=== PATIENT | female | born 1950 | race Caucasian/White ===

== ENCOUNTER → 2020-12-26 09:58 | Outpatient (CLI) | payer OTHER, SELFPAY ==
--- NOTE | ~2020-12-26 | DEXA_ITS ---
Bone Density Report Name: Reva Mayer Age: 70 Sex: Female Ethnicity: White Date of : 1950 Indication: osteopenia; postmenopausal Referring Provider: PHILOMENA WHITMAN Study: Bone densitometry was performed. Exam Date: December 26, 2020 Accession number: [id number] Bone Density: Region BMD T-score Z-score Classification AP Spine (L1-L4) 0.905 -1.3 0.8 Osteopenia Femoral Neck (Left) 0.887 0.3 2.1 Normal Total Hip (Left) 1.010 0.6 2.0 Normal Femoral Neck (Right) 0.856 0.1 1.8 Normal Total Hip (Right) 0.968 0.2 1.7 Normal Total Hip Mean 0.989 0.4 1.9 Normal World Health Organization criteria for BMD impression classify patients as: Normal (T-score at or above -1.0), Osteopenia (T-score between -1.0 and -2.5), or Osteoporosis (T-score at or below -2.5). 10-year Fracture Risk(1): Major Osteoporotic Fracture 6.8% Hip Fracture 0.3% Reported Risk Factors: [place] (), Neck BMD=0.856, BMI=31.2 (1) FRAX(R) Version 3.08. Fracture probability calculated for an untreated patient. Fracture probability may be lower if the patient has received treatment. Previous Exams: Region Exam Age BMD T-score BMD Change BMD Change Date g/cm2 vs Baseline vs Previous AP Spine(L1-L4) 12/26/2020 70 0.905 -1.3 -0.003 0.002 07/21/2018 67 0.903 -1.3 -0.004 0.007 04/13/2015 64 0.896 -1.4 -0.012 -0.061* 03/10/2013 62 0.957 -0.8 0.049* 0.051* 02/18/2011 60 0.906 -1.3 -0.002 -0.012 07/28/2006 55 0.919 -1.2 0.011 0.011 05/22/2005 54 0.908 -1.3 Total Hip(Left) 12/26/2020 70 1.010 0.6 -0.074 0.028 07/21/2018 67 0.982 0.3 -0.102* -0.059* 04/13/2015 64 1.041 0.8 -0.043* 0.053* 03/10/2013 62 0.989 0.4 -0.096* 0.019 02/18/2011 60 0.970 0.2 -0.115* -0.052* 07/28/2006 55 1.022 0.7 -0.063* -0.063* 05/22/2005 54 1.084 1.2 Total Hip(Right) 12/26/2020 70 0.968 0.2 -0.108 -0.072 07/21/2018 67 1.040 0.8 -0.036* 0.000 04/13/2015 64 1.040 0.8 -0.037* 0.087* 03/10/2013 62 0.952 0.1 -0.124* -0.032* 02/18/2011 60 0.985 0.3 -0.092* -0.062* 07/28/2006 55 1.047 0.9 -0.029* -0.029* 05/22/2005 54 1.076 1.1 *Denotes significance at 95% confidence level, LSC for AP Sp
--- NOTE | ~2020-12-26 | MM_ITS ---
EXAMINATION: MM screening pedro luis BI w claudia HISTORY: Screening TECHNIQUE: Craniocaudal and mediolateral oblique 3-D tomosynthesis images were obtained and synthetic 2-D images were generated. CAD analysis was submitted and interpreted. COMPARISON: Comparison to multiple prior studies sequentially, with oldest reviewed study dated 04/13. BREAST PARENCHYMAL COMPOSITION: There are scattered areas of fibroglandular density. FINDINGS: There is no evidence of suspicious mass, calcification, or architectural distortion to sugg est malignancy in either breast. There has been no suspicious interval change. IMPRESSION: 1. No mammographic evidence of malignancy. 2. Recommend routine screening mammography in one year. BI-RADS Category 1: Negative Reviewed, dictated and finalized at location A. OM[facility] SUCCESS SPECIALIST
== END ==
PROVIDERS: PCP Family Medicine; Visit Provider Family Medicine
DX: Z12.31 Encounter for screening mammogram for malignant neoplasm of breast (principal); Z78.0 Asymptomatic menopausal state
CPT/HCPCS: 77063; 77067; 77080

== ENCOUNTER 2021-07-24 00:56 | Day surgery (SDC) | payer OTHER, SELFPAY ==
[2021-07-12 14:25] VITALS: BMI 29.7
--- NOTE | 2021-07-23 13:48 | WPDANESEPPF ---
Anes - Initial Pre Proc Eval Procedure: Operation Date: 07/24/21 09:30 Proposed Procedures p Colonoscopy - Dav See MD Date/Time: 07/23/21 13:48 Surgeon: Dav See MD Pre Op Diagnosis: positive cologuard Patient Data Age: 70 Gender: F Height: 1.63 m Weight: 78.6 kg Allergies Allergy/AdvReac Type Severity Reaction Status Date / Time No Known Allergies Allergy Mild Verified 07/24/21 08:34 Home Medications Medication Instructions Recorded Confirmed Type ergocalciferol (vitamin D2) 1,250 50,000 unit PO WEEKLY #12 cap 12/25/20 07/24/21 Rx mcg (50,000 unit) capsule levothyroxine 175 mcg tablet 175 mcg PO DAILY #90 tablet 05/17/21 07/24/21 Rx Patient hx anesthesia problems: none Family hx anesthesia problems: none PMFSH Past Medical History Medical History (Updated 06/26/21 @ 17:44 by Opal Patiño MD) Acquired hypothyroidism Vitamin D deficiency, unspecified Surgical History Surgical History (Updated 07/23/21 @ 13:49 by Jeffrey Heard DO) History of tubal ligation Family History Family History Mother Carcinoma of colon Father Family history of pancreatic cancer Other Family history of malignant neoplasm Family history of malignant neoplasm of brain Social History Social History (Updated 05/23/21 @ 21:39 by Opal aPtiño MD) Social History: Smoking packs per day: 1 Smoking cigarettes per day: 20.0 Years smoked: 10 Smoking pack-years: 10.00 Smoking status: Former smoker Tobacco type: cigarettes Second hand tobacco smoke exposure: No Smoking end date: 12/01/95 Alcohol intake: current Drinks per week: 6 Substance use: never Substance use type: does not use Living arrangements: with family Gender identity (if verbalized by the patient): Female Spiritual care concerns: No Agree to blood products: Yes Anes - Eval Final PreProcedure Day of Procedure 07/23/21 13:48 Patient weight: overweight Heart: regular rate and rhythm Lungs: clear to auscultation and normal air movement Airway: Mallampati scale class II Neurological: alert and oriented Last oral intake: >/= 8 hours ASA classification: II Emergent: no Anesthetic plan: proceed Anesthesia type and monitoring: general GIVS and standard monitoring Informed Consent: The patient's anesthetic plan and its attendant risks and benefits were discussed with the patient/family/POA. Questions were solicited and answers provided to the satisfaction of the patient/family/POA.
[2021-07-24 08:35] VITALS: BP 100/63; PULSE 75; RESP 16; TEMP 36.1; O2SAT 99; BMI 29.0
[2021-07-24] MEDS: LACTATED RINGERS 1,000 ML 150 ML IV CONT (08:38)
--- NOTE | 2021-07-24 10:05 | PM.HPGS ---
History of Present Illness History of Present Illness Consent: Risks, benefits, and alternatives have been discussed and questions answered. Patient agrees to proceed with procedure. Chief complaint: positive cologuard Narrative: Reva Mayer is a 70 year old female with last colonoscopy 10 years ago but had a recent positive cologuard Review of Systems Constitutional: Constitutional: Denies headache(s) and Denies weakness Eyes: Eyes: Denies blurry vision ENT: Reports Normal hearing present, Denies headache(s) and Denies neck pain Cardiovascular: Cardiovascular: Denies chest pain and Denies dyspnea Respiratory: Respiratory: Denies dyspnea Gastrointestinal: Gastrointestinal: Reports no additional gastrointestinal complaints Genitourinary: Genitourinary: Denies dysuria Musculoskeletal: Musculoskeletal: Denies neck pain Integumentary/Breasts: Skin/Breast: Denies dry skin Neurologic: Reports Normal hearing present, Denies headache(s) and Denies weakness Psychiatric: Psychiatric: Denies anxiety Endocrine: Endocrine: Denies change in body appearance Hematologic/Lymphatic: Hematologic/Lymphatic: Denies easy bleeding Allergic/Immunologic: Allergic/Immunologic: Denies urticaria PMFSH Past Medical History Medical History (Updated 06/26/21 @ 17:44 by Opal Patiño MD) Acquired hypothyroidism Vitamin D deficiency, unspecified Surgical History Surgical History (Updated 07/23/21 @ 13:49 by Jeffrey Heard DO) History of tubal ligation Family History Family History Mother Carcinoma of colon Father Family history of pancreatic cancer Other Family history of malignant neoplasm Family history of malignant neoplasm of brain Social History Social History (Updated 05/23/21 @ 21:39 by Opal Patiño MD) Social History: Smoking packs per day: 1 Smoking cigarettes per day: 20.0 Years smoked: 10 Smoking pack-years: 10.00 Smoking status: Former smoker Tobacco type: cigarettes Second hand tobacco smoke exposure: No Smoking end date: 12/01/95 Alcohol intake: current Drinks per week: 6 Substance use: never Substance use type: does not use Living arrangements: with family Gender identity (if verbalized by the patient): Female Spiritual care concerns: No Agree to blood products: Yes Meds Home Medications and Allergies Home Medications Medication Instructions Recorded Confirmed Type ergocalciferol (vitamin D2) 1,250 50,000 unit PO WEEKLY #12 cap 12/25/20 07/24/21 Rx mcg (50,000 unit) capsule levothyroxine 175 mcg tablet 175 mcg PO DAILY #90 tablet 05/17/21 07/24/21 Rx Allergies Allergy/AdvReac Type Severity Reaction Status Date / Time No Known Allergies Allergy Mild Verified 07/24/21 08:34 Vital Signs Vital Signs - 24 hr 07/24/21 08:35 Temperature 97 F L Pulse Rate 75 Respiratory Rate 16 Blood Pressure 100/63 Pulse Oximetry 99 Exam Const: General: comfortable and no acute distress HENMT: General nose exam: Normal nares present Eyes: General: appearance normal, both eyes and all related structures Neck: Neck: no JVD Resp: Auscultation: clear to auscultation bilaterally Cardio: Rate: regular rate Rhythm: regular rhythm GI: Inspection: non-distended GI Palp: Yes Soft to palpation Skin: General skin exam: normal color Neuro: General: gait normal Speech: normal speech Extrem: General: normal to inspection Psych: Mental Status: mental status grossly normal Assessment and Plan Assessment and plan (1) Positive colorectal cancer screening using Cologuard test: Code(s): R19.5 - Other fecal abnormalities Status: Acute Assessment and Plan: colonoscopy
--- NOTE | 2021-07-24 10:58 | SUR.OPER ---
ORISE GEL 10ML INJECTED INTO DISTAL ASCENDING COLON POLYP, LOT [id number], EXP 2022-12-31 NORMAL SALINE 10ML INJECTED INTO DISTAL ASCENDING COLON POLYP, LOT [id number], EXP 2024-01-29
[2021-07-24 11:43] VITALS: BP 120/58; PULSE 70; RESP 17; O2SAT 99
[2021-07-24 11:53] VITALS: BP 122/56; PULSE 60; RESP 16; O2SAT 99
[2021-07-24 12:03] VITALS: BP 129/62; PULSE 60; RESP 19; O2SAT 99
== END 2021-07-24 12:21 | disposition home or self-care (01) ==
PROVIDERS: PCP Family Medicine; Visit Provider Internal Medicine Gastroenterology
PROC: 0DJD8ZZ Inspection of Lower Intestinal Tract, Via Natural or Artificial Opening Endoscopic (ICD-10-PCS; CPT 45378; principal; 2021-07-24 09:30)
DX: R19.5 Other fecal abnormalities (principal); K64.8 Other hemorrhoids; K63.5 Polyp of colon; E03.9 Hypothyroidism, unspecified; E55.9 Vitamin D deficiency, unspecified; Z87.891 Personal history of nicotine dependence
CPT/HCPCS: 45381; 45385; 45380; 45390; 88305; J2704; J7120

== ENCOUNTER → 2022-02-28 09:47 | Outpatient (CLI) | payer OTHER, SELFPAY ==
--- NOTE | ~2022-02-28 | MM_ITS ---
EXAMINATION: MM screening [facility] [place] BI w claudia HISTORY: Screening mammogram TECHNIQUE: Craniocaudal and mediolateral oblique 3-D tomosynthesis images were obtained and synthetic 2-D images were generated. CAD analysis was submitted and interpreted. COMPARISON: 12/26/2020, 08/10/2019, 02/12/2018 BREAST PARENCHYMAL COMPOSITION: There are scattered areas of fibroglandular density. FINDINGS: There is no suspicious mass, calcification, or architectural distortion to suggest malignan cy in either breast. There has been no suspicious interval change. IMPRESSION: 1. No mammographic evidence of malignancy. 2. Recommend routine screening mammography in one year. BI-RADS Category 1: Negative Reviewed, dictated and finalized at location A.
== END ==
PROVIDERS: PCP Family Medicine; Visit Provider Nurse Practitioner Gerontology
DX: Z12.31 Encounter for screening mammogram for malignant neoplasm of breast (principal)
CPT/HCPCS: 77063; 77067

== ENCOUNTER 2022-04-02 00:03 | Day surgery (SDC) | payer OTHER, SELFPAY ==
[2022-03-18 14:25] VITALS: BMI 30.2
[2022-04-02 06:23] VITALS: BP 108/66; PULSE 76; RESP 16; TEMP 36.1; O2SAT 99
[2022-04-02] MEDS: LACTATED RINGERS 1,000 ML 150 ML IV CONT (06:31)
--- NOTE | 2022-04-02 07:24 | P.PNAN_ITS ---
Anes - Initial Pre Proc Eval Procedure: Operation Date: 04/02/22 07:30 Proposed Procedures p Screening Colonoscopy - Dav See MD Date/Time: 04/02/22 07:24 Surgeon: Dav See MD Pre Op Diagnosis: hx of colon polyps Patient Data Age: 71 Gender: F Height: 1.63 m Weight: 81.2 kg Last Vital Signs Temp 97 F L 04/02/22 06:23 Pulse 76 04/02/22 06:23 Resp 16 04/02/22 06:23 BP 108/66 04/02/22 06:23 Pulse Ox 99 04/02/22 06:23 Allergies Allergy/AdvReac Type Severity Reaction Status Date / Time No Known Allergies Allergy Mild Verified 04/02/22 06:22 Home Medications Medication Instructions Recorded Confirmed Type ergocalciferol (vitamin D2) 1,250 50,000 unit PO WEEKLY #12 cap 12/19/21 03/18/22 Rx mcg (50,000 unit) capsule levothyroxine 175 mcg tablet 175 mcg PO DAILY #90 tablet 12/19/21 04/02/22 Rx valacyclovir [Valtrex] 2,000 mg PO Q12H PRN 03/18/22 03/18/22 History Patient hx anesthesia problems: none Family hx anesthesia problems: none Results Review: All pre-operative results and documents have been reviewed as part of the pre-operative evaluation. [facility] Past Medical History Medical History Acquired hypothyroidism Vitamin D deficiency, unspecified Surgical History Surgical History History of tubal ligation Family History Family History Mother Carcinoma of colon Father Family history of pancreatic cancer Other Family history of malignant neoplasm Family history of malignant neoplasm of brain Social History Social History (Updated 12/19/21 @ 07:27 by Yuridia Woodall) Social History: Smoking packs per day: 1 Smoking cigarettes per day: 20.0 Years smoked: 10 Smoking pack-years: 10.00 Smoking status: Former smoker Tobacco type: cigarettes Second hand tobacco smoke exposure: No Smoking end date: 01/01/96 Alcohol intake: current Drinks per week: 10 Substance use: never Substance use type: does not use Living arrangements: with family Gender identity (if verbalized by the patient): Female Sexual Orientation (if Verbalized by the Patient): Straight or Heterosexual Spiritual care concerns: No Agree to blood products: Yes Anes - Eval Final PreProcedure Day of Procedure 04/02/22 07:24 Patient weight: obese Heart: regular rate and rhythm Lungs: clear to auscultation Airway: Mallampati scale class II Neurological: alert and oriented Last oral intake: >/= 8 hours ASA classification: II Emergent: no Anesthetic plan: proceed Anesthesia type and monitoring: general GIVS and standard monitoring Results Review: All pre-operative results and documents have been reviewed as part of the pre-operative evaluation. Informed Consent: The patient's anesthetic plan and its attendant risks and benefits were discussed with the patient/family/POA. Questions were solicited and answers provided to the satisfaction of the patient/family/POA.
--- NOTE | 2022-04-02 07:28 | PM.HPGS ---
History of Present Illness History of Present Illness Consent: Risks, benefits, and alternatives have been discussed and questions answered. Patient agrees to proceed with procedure. Chief complaint: hx of colon polyps Narrative: Reva Mayer is a 71 year old female with large polyps removed in piece-meal 07/2021 after had positive cologuard Review of Systems Constitutional: Constitutional: Denies headache(s) and Denies weakness Eyes: Eyes: Denies blurry vision ENT: Reports Normal hearing present, Denies headache(s) and Denies neck pain Cardiovascular: Cardiovascular: Denies chest pain and Denies dyspnea Respiratory: Respiratory: Denies dyspnea Gastrointestinal: Gastrointestinal: Reports no additional gastrointestinal complaints Genitourinary: Genitourinary: Denies dysuria Musculoskeletal: Musculoskeletal: Denies neck pain Integumentary/Breasts: Skin/Breast: Denies dry skin Neurologic: Reports Normal hearing present, Denies headache(s) and Denies weakness Psychiatric: Psychiatric: Denies anxiety Endocrine: Endocrine: Denies change in body appearance Hematologic/Lymphatic: Hematologic/Lymphatic: Denies easy bleeding Allergic/Immunologic: Allergic/Immunologic: Denies urticaria PMFSH Past Medical History Medical History (Updated 04/02/22 @ 07:28 by Dav See MD) Acquired hypothyroidism Adenomatous colon polyp Vitamin D deficiency, unspecified Surgical History Surgical History History of tubal ligation Family History Family History Mother Carcinoma of colon Father Family history of pancreatic cancer Other Family history of malignant neoplasm Family history of malignant neoplasm of brain Social History Social History (Updated 12/19/21 @ 07:27 by Yuridia Woodall) Social History: Smoking packs per day: 1 Smoking cigarettes per day: 20.0 Years smoked: 10 Smoking pack-years: 10.00 Smoking status: Former smoker Tobacco type: cigarettes Second hand tobacco smoke exposure: No Smoking end date: 12/01/95 Alcohol intake: current Drinks per week: 10 Substance use: never Substance use type: does not use Living arrangements: with family Gender identity (if verbalized by the patient): Female Sexual Orientation (if Verbalized by the Patient): Straight or Heterosexual Spiritual care concerns: No Agree to blood products: Yes Meds Home Medications and Allergies Home Medications Medication Instructions Recorded Confirmed Type ergocalciferol (vitamin D2) 1,250 50,000 unit PO WEEKLY #12 cap 12/19/21 03/18/22 Rx mcg (50,000 unit) capsule levothyroxine 175 mcg tablet 175 mcg PO DAILY #90 tablet 12/19/21 04/02/22 Rx valacyclovir [Valtrex] 2,000 mg PO Q12H PRN 03/18/22 03/18/22 History Allergies Allergy/AdvReac Type Severity Reaction Status Date / Time No Known Allergies Allergy Mild Verified 04/02/22 06:22 Vital Signs Vital Signs - 24 hr 04/02/22 06:23 Temperature 97 F L Pulse Rate 76 Respiratory Rate 16 Blood Pressure 108/66 Pulse Oximetry 99 Exam Const: General: comfortable and no acute distress HENMT: General nose exam: Normal nares present Eyes: General: appearance normal, both eyes and all related structures Neck: Neck: no JVD Resp: Auscultation: clear to auscultation bilaterally Cardio: Rate: regular rate Rhythm: regular rhythm GI: Inspection: non-distended GI Palp: Yes Soft to palpation Skin: General skin exam: normal color Neuro: General: gait normal Speech: normal speech Extrem: General: normal to inspection Psych: Mental Status: mental status grossly normal Assessment and Plan Assessment and plan (1) Adenomatous colon polyp: Code(s): D12.6 - Benign neoplasm of colon, unspecified Status: Acute Assessment and Plan: colonoscopy
[2022-04-02 07:51] VITALS: BP 96/54; PULSE 66; RESP 18; O2SAT 98
[2022-04-02 08:01] VITALS: BP 114/56; PULSE 64; RESP 15; O2SAT 95
[2022-04-02 08:11] VITALS: BP 110/63; PULSE 52; RESP 16; O2SAT 98
== END 2022-04-02 08:20 | disposition home or self-care (01) ==
PROVIDERS: PCP Family Medicine; Visit Provider Internal Medicine Gastroenterology
PROC: 0DJD8ZZ Inspection of Lower Intestinal Tract, Via Natural or Artificial Opening Endoscopic (ICD-10-PCS; CPT 45378; principal; 2022-04-02 07:30)
DX: K63.5 Polyp of colon (principal); K64.8 Other hemorrhoids; E03.9 Hypothyroidism, unspecified; E55.9 Vitamin D deficiency, unspecified; Z87.891 Personal history of nicotine dependence
CPT/HCPCS: 45385; 88305; J2704; J7120

== ENCOUNTER 2024-07-12 16:01 | Outpatient (CLI) | payer OTHER, SELFPAY ==
--- NOTE | ~2024-07-12 | XR_ITS ---
XR knee LT 3V Ordering provider: Lianna Daniel PA-C History: . M25.562 - Pain in left knee . Comparison: None. FINDINGS: BONES: No acute fracture or dislocation. JOINT SPACES: Normal. SOFT TISSUES: Normal. IMPRESSION: No acute osseous abnormality left knee. Reviewed, dictated and finalized at location A.
== END 2024-07-12 16:02 ==
PROVIDERS: PCP Physician Assistant; Visit Provider Physician Assistant
DX: M25.562 Pain in left knee (principal)
CPT/HCPCS: 73562

== ENCOUNTER 2024-07-28 11:02 | Outpatient (CLI) | payer OTHER, SELFPAY ==
--- NOTE | ~2024-07-28 | MM_ITS ---
EXAMINATION: MM screening [facility] w claudia HISTORY: Screening TECHNIQUE: Craniocaudal and mediolateral oblique 3-D tomosynthesis images were obtained and synthetic 2-D images were generated. CAD analysis was submitted and interpreted. COMPARISON: Comparison to multiple prior studies sequentially, with oldest reviewed study dated 08/2017. BREAST PARENCHYMAL COMPOSITION: Not dense: There are scattered areas of fibroglandular density. FINDINGS: There is no evidence of suspicious mass, calcification, or architectural distortion to sugg est malignancy in either breast. There has been no suspicious interval change. IMPRESSION: 1. No mammographic evidence of malignancy. 2. Recommend routine screening mammography in one year. BI-RADS Category 1: Negative Reviewed, dictated and finalized at location B.
== END 2024-07-28 11:03 ==
LOC: MICIMG 11:03
PROVIDERS: PCP Family Medicine; Visit Provider Family Medicine
DX: Z12.31 Encounter for screening mammogram for malignant neoplasm of breast (principal)
CPT/HCPCS: 77063; 77067

== ENCOUNTER 2025-01-20 09:31 | Outpatient (CLI) | payer OTHER, SELFPAY ==
--- NOTE | ~2025-01-20 | XR_ITS ---
Cervical Spine: AP, lateral, open-mouth views Clinical History: Pain Findings: The normal lordotic curve is maintained. No fracture seen. Minimal grade 1 anterolisthesis of C3 over C4. There is mild degenerative change at C5-C6. There is mild facet arthropathy.. Pre-vert ebral soft tissues are unremarkable. Impression: Mild degenerative spondylosis, as above. Reviewed, dictated and finalized at [facility]. [employer] GRADER Impression: Mild degenerative spondylosis, as above.
== END 2025-01-20 09:32 | disposition home or self-care (01) ==
LOC: MICIMG 09:32
PROVIDERS: PCP Family Medicine; Visit Provider Physician Assistant
DX: M47.892 Other spondylosis, cervical region (principal)
CPT/HCPCS: 72040

== ENCOUNTER 2025-10-17 01:16 | Day surgery (SDC) | payer OTHER, SELFPAY ==
--- OUTSIDE RECORDS SUMMARY | 2009-08-28 18:00 | XMS_ITS | Continuity of Care Document ---
Author Organization [facility] Address [address] [place] [address] Phone Care Team Providers Care Cost Accounting Clerk Name Role Phone Brenda Goode DO Unavailable Unavailable Procedures Procedure Date Specimen handling/transport Specimen handling/transport Advance Directives Directive Yes / No Effective Date File Name No Information Encounters Encounter Description Practice Location Reason(s) For Visit Diagnoses Date Provider Providers Copied on Encounter [facility], [address] [facility], [id number], tel:[phone] [facility] No Information 9 Rupa Gutierrez. [address] [facility], [facility] 100, [place], [place], [id number] , [place]. tel:[phone] Family History Family Member Type Diagnosis Age At Onset No Information Payers Payer name Insurance type Covered green party ID Authoriza sheron(s) [employer] [id number] Social History Type Description Quantity Date Captured Comments Sex Female Smoking Status No Information Chief Complaint And Reason For Visit No Information Reason For Referral Reason For Referral No Information History Of Present Illness Encounter Date Complaint History Of Prese nt Illness No Information Functional Status Date Functional Assessmen t No Information Instructions Date Instruction Additional Infor mation No Information Assessments Type Assessment Date No Information Patient Care Teams Name Effective Dates (start - stop) Status Members No Information
--- OUTSIDE RECORDS SUMMARY | 2009-08-28 18:00 | XMS_ITS | Continuity of Care Document ---
Author Organization [facility] Address [address] [facility] [address] [place] [address] Phone Care Team Providers Care Twisting Press Operator Name Role Phone Brenda Goode DO Unavailable Unavailable Procedures Procedure Date Specimen handling/transport Specimen handling/transport Advance Directives Directive Yes / No Effective Date File Name No Information Encounters Encounter Description Practice Location Reason(s) For Visit Diagnoses Date Provider Providers Copied on Encounter [facility], [address] [facility] [address], [id number], tel:[phone] [facility] No Information 9 Rupa Gutierrez. [address] [facility], [email or web address] 100, [place], [place], [id number] , [place]. tel:[phone] Family History Family Member Type Diagnosis Age At Onset No Information Payers Payer name Insurance type Covered democrat ID Authoriza sheron(s) [employer] [id number] Social History Type Description Quantity Date Captured [...]
--- OUTSIDE RECORDS SUMMARY | 2009-08-28 18:00 | XMS_ITS | Continuity of Care Document ---
Author Organization [facility] Address [address] [facility] [address] [place] [address] Phone Care Team Providers Care Calculus Professor Name Role Phone Brenda Goode DO Unavailable Unavailable Procedures Procedure Date Specimen handling/transport Specimen handling/transport Advance Directives Directive Yes / No Effective Date File Name No Information Encounters Encounter Description Practice Location Reason(s) For Visit Diagnoses Date Provider Providers Copied on Encounter [facility], [address] [facility] [address], [id number], tel:[phone] [facility] No Information 9 Rupa Gutierrez. [address] [facility], [facility] 100, [place], [place], [id number] , [place]. tel:[phone] Family History Family Member Type Diagnosis Age At Onset No Information Payers Payer name Insurance type Covered republican ID Authoriza sheron(s) [employer] [id number] Social History Type Description Quantity Date Captured [...]
--- OUTSIDE RECORDS SUMMARY | 2009-08-28 18:00 | XMS_ITS | Continuity of Care Document ---
Author Organization [facility] Address [address] [facility] [address] [place] [address] Phone Care Team Providers Care School Bus Driver Name Role Phone Brenda Goode DO Unavailable Unavailable Procedures Procedure Date Specimen handling/transport Specimen handling/transport Advance Directives Directive Yes / No Effective Date File Name No Information Encounters Encounter Description Practice Location Reason(s) For Visit Diagnoses Date Provider Providers Copied on Encounter [facility] [employer], [address], [id number], tel:[phone] [facility] No Information 9 Rupa Gutierrez. 1050 [facility], [facility] 100, [place], [place], [id number] , [place]. tel:[phone] Family History Family Member Type Diagnosis Age At Onset No Information Payers Payer name Insurance type Covered constitution party ID Authoriza sheron(s) [employer] [id number] Social History Type Description Quantity Date Captured [...]
--- OUTSIDE RECORDS SUMMARY | 2009-08-28 18:00 | XMS_ITS | Continuity of Care Document ---
Author Organization [facility] Address [address] [facility] [address] [place] [address] Phone Care Team Providers Care Steel Melter Name Role Phone Brenda Goode DO Unavailable Unavailable Procedures Procedure Date Specimen handling/transport Specimen handling/transport Advance Directives Directive Yes / No Effective Date File Name No Information Encounters Encounter Description Practice Location Reason(s) For Visit Diagnoses Date Provider Providers Copied on Encounter [facility] [employer], [address] [facility], [id number], tel:[phone] [facility] No Information [address] [facility], [facility] 100, [place], [place], [id number] , [place]. tel:[phone] Family History Family Member Type Diagnosis Age At Onset No Information Payers Payer name Insurance type Covered republican ID Authoriza sheron(s) [employer] [id number] Social History Type Description Quantity Date Captured [...]
--- OUTSIDE RECORDS SUMMARY | 2009-08-28 18:00 | XMS_ITS | Continuity of Care Document ---
Author Organization [facility] Address [address] [facility] [address] [place] [address] Phone Care Team Providers Care Power Tong Operator Name Role Phone Brenda Goode DO Unavailable Unavailable Procedures Procedure Date Specimen handling/transport Specimen handling/transport Advance Directives Directive Yes / No Effective Date File Name No Information Encounters Encounter Description Practice Location Reason(s) For Visit Diagnoses Date Provider Providers Copied on Encounter [facility] [employer], [address] [facility] [address], [id number], tel:[phone] [facility] No Information 9 Rupa Gutierrez. [address] [facility], [facility] 100, [place], [place], [id number] , [place]. tel:[phone] Family History Family Member Type Diagnosis Age At Onset No Information Payers Payer name Insurance type Covered constitution party ID Authoriza sheron(s) [employer] [id number] Social History Type Description Quantity Date Captured [...]
--- OUTSIDE RECORDS SUMMARY | 2009-08-28 18:00 | XMS_ITS | Continuity of Care Document ---
Author Organization [facility] Address [address] [facility] [address] [place] [address] Phone Care Team Providers Care Cable Inspector Name Role Phone Brenda Goode DO Unavailable Unavailable Procedures Procedure Date Specimen handling/transport Specimen handling/transport Advance Directives Directive Yes / No Effective Date File Name No Information Encounters Encounter Description Practice Location Reason(s) For Visit Diagnoses Date Provider Providers Copied on Encounter [facility] [employer], [address] [facility], [id number], tel:[phone] [facility] No Information 9 Rupa Gutierrez. 1050 [facility], [facility] 100, [place], [place], [id number] , [place]. tel:[phone] Family History Family Member Type Diagnosis Age At Onset No Information Payers Payer name Insurance type Covered constitution party ID Authoriza sheron(s) [employer] [id number] Social History Type Description Quantity Date Captured [...]
--- OUTSIDE RECORDS SUMMARY | 2009-08-28 18:00 | XMS_ITS | Continuity of Care Document ---
Author Organization [facility] Address [address] [facility] [address] [place] [address] Phone Care Team Providers Care Laboratory Worker Name Role Phone Brenda Goode DO Unavailable Unavailable Procedures Procedure Date Specimen handling/transport Specimen handling/transport Advance Directives Directive Yes / No Effective Date File Name No Information Encounters Encounter Description Practice Location Reason(s) For Visit Diagnoses Date Provider Providers Copied on Encounter [facility] [employer], [address] [facility], [id number], tel:[phone] [facility] No Information 9 Rupa Gutierrez. [address] [facility], [facility] 100, [place], [place], [id number] , [place]. tel:[phone] Family History Family Member Type Diagnosis Age At Onset No Information Payers Payer name Insurance type Covered republican ID Authoriza sheron(s) [email or web address] [id number] Social History Type Description Quantity Date Captured [...]
--- OUTSIDE RECORDS SUMMARY | 2009-08-28 18:00 | XMS_ITS | Continuity of Care Document ---
Author Organization [facility] Address [address] [facility] [address] [place] [address] Phone Care Team Providers Care Tube Mill Operator Name Role Phone Brenda Goode DO Unavailable Unavailable Procedures Procedure Date Specimen handling/transport Specimen handling/transport Advance Directives Directive Yes / No Effective Date File Name No Information Encounters Encounter Description Practice Location Reason(s) For Visit Diagnoses Date Provider Providers Copied on Encounter [facility] [employer], [address], [id number], tel:[phone] [facility] No Information 9 Rupa Gutierrez. [address] [facility], [facility] 100, [place], [place], [id number] , [place]. tel:[phone] Family History Family Member Type Diagnosis Age At Onset No Information Payers Payer name Insurance type Covered green party ID Authoriza sheron(s) [employer] [id number] Social History Type Description Quantity Date Captured [...]
--- OUTSIDE RECORDS SUMMARY | 2009-08-28 18:00 | XMS_ITS | Continuity of Care Document ---
Author Organization [facility] Address [address] [facility] [address] [place] [address] Phone Care Team Providers Care Dry Box Operator Name Role Phone Brenda Goode DO Unavailable Unavailable Procedures Procedure Date Specimen handling/transport Specimen handling/transport Advance Directives Directive Yes / No Effective Date File Name No Information Encounters Encounter Description Practice Location Reason(s) For Visit Diagnoses Date Provider Providers Copied on Encounter [facility] [employer], [address] [facility] [address], [id number], tel:[phone] [facility] No Information 9 Rupa Gutierrez. 10[address] [facility], [facility] 100, [place], [place], [id number] , [place]. tel:[phone] Family History Family Member Type Diagnosis Age At Onset No Information Payers Payer name Insurance type Covered constitution party ID Authoriza sheron(s) [employer] [id number] Social History Type Description Quantity Date Captured [...]
--- OUTSIDE RECORDS SUMMARY | 2009-08-28 18:00 | XMS_ITS | Continuity of Care Document ---
Author Organization [facility] Address [address] [facility] [address] [place] [address] Phone Care Team Providers Care Engineer Gas Pumping Station Name Role Phone Brenda Goode DO Unavailable Unavailable Procedures Procedure Date Specimen handling/transport Specimen handling/transport Advance Directives Directive Yes / No Effective Date File Name No Information Encounters Encounter Description Practice Location Reason(s) For Visit Diagnoses Date Provider Providers Copied on Encounter [facility], [address] [facility] [address], [id number], tel:[phone] [facility] No Information 9 Rupa Gutierrez. 1050 [facility], [facility] 100, [place], [place], [id number] , [place]. tel:[phone] Family History Family Member Type Diagnosis Age At Onset No Information Payers Payer name Insurance type Covered green party ID Authoriza sheron(s) [employer] [id number] Social History Type Description Quantity Date Captured [...]
--- OUTSIDE RECORDS SUMMARY | 2009-08-28 18:00 | XMS_ITS | Continuity of Care Document ---
Author Organization [facility] Address [address] [facility] [address] [place] [address] Phone Care Team Providers Care Inpatient Pharmacist Name Role Phone Brenda Goode DO Unavailable Unavailable Procedures Procedure Date Specimen handling/transport Specimen handling/transport Advance Directives Directive Yes / No Effective Date File Name No Information Encounters Encounter Description Practice Location Reason(s) For Visit Diagnoses Date Provider Providers Copied on Encounter [facility], [address] [facility], [id number], tel:[phone] [facility] No Information 9 Rupa Gutierrez. 10[address] [facility], [facility] 100, [place], [place], [id number] , [place]. tel:[phone] Family History Family Member Type Diagnosis Age At Onset No Information Payers Payer name Insurance type Covered alliance party ID Authoriza sheron(s) [employer] [id number] Social History Type Description Quantity Date Captured [...]
--- OUTSIDE RECORDS SUMMARY | 2025-10-17 01:20 | XMS_ITS | Clinical Summary ---
Author Organization [facility] Address [address] [place] [id number] Care Team Providers Care Compliance Review Officer Name Role Phone Ismael Zavala MD Primary Care Provider [phone] Social History Tobacco Use Types Packs/Day Years Used Date Smoking Tobacco: Never Assessed Comments Unknown Sex and Gender Information Value Date Recorded Sex Assigned at Female 06/13/2025 2:06 PM CDT Legal Sex Female 9:17 PM CDT Gender Identity Not on file Sexual Orientation Not on file Plan of Treatment Health Maintenance Due Date Last Done Comments Colorectal Cancer Screening Colonoscopy (10 Years) 1950 Hepatitis C 1969 DTaP, Tdap and Td Vaccines (1 - Tdap) 1970 Mammogram Screening 1991 Annual Medicare Wellness Visit 2016 Dexa Scan (General) 2016 COVID-19 Vaccine ( season) 2025 09/07/2024, 09/09/2023, 11/14/2021, Additional history exists Influenza Adult (#1) 2025 09/07/2024, 09/02/2022, 09/04/2021, Additional history exists RSV Immunization or 60+ Years (1 - 1-dose 75+ series) 2026 Pneumococcal Vaccine: 50+ Years Completed 09/29/2020, 09/27/2019 Zoster Vaccines Completed 02/05/2022, 09/26/2021 Hepatitis A Vaccines Aged Out No long er eligible based on patient's age to complete this topic Meningococcal B Vaccine Aged Out No l onger eligible based on patient's age to complete this topic Meningococcal Vaccine Aged Out No [facility] eligible based on patient's age to complete this topic RSV Immunizations Under 20 Months Aged Out No longer eligible based on patient's age to complete this topic Insurance [employer] Care Teams Compliance Review Officer Relationship Specialty Start Date End Date Ismael Zavala MD [address] [place] [address] PCP - General FAMILY PRACTICE 06/14/25
--- OUTSIDE RECORDS SUMMARY | 2025-10-17 01:20 | XMS_ITS | Clinical Summary ---
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 Gender Identity Not on file Sexual Orientation Not on file Plan of Treatment Health Maintenance Due Date Last Done Comments Hepatitis C Virus (HCV) Screening 1950 TdaP Immunization 1950 Cologuard 1996 Colonoscopy 1996 Colorectal Cancer Screening 1996 Immunochemical Fecal Occult Blood 1996 Pneumococcal Immunization (5 0+ years) (1 of 1 - PCV) 2001 Zoster Immunization (1 of 2) 2001 Influenza Immunization (#1) 2025 SARS-COV-2 Immunization ( - season) 2025 Respiratory Syncytial Virus (RSV) Immunization (Adult) (1 - 1-dose 75+ series) 2026 Hepatitis B Immunization Aged Out No longer eligible based on patient's age to complete this topic Human Papillomavirus (HPV) Immunization Aged Out No longer eligible b ased on patient's age to complete this topic Meningococcal Immunization (ACWY) Aged Out No longer eligible based on patient's age to complete this topic Rotavirus Immunization Aged Out No lo nger eligible based on patient's age to complete this topic
[2025-10-17 06:51] VITALS: BP 125/70; PULSE 66; RESP 18; TEMP 36.1; O2SAT 97; BMI 30.4
--- NOTE | 2025-10-17 06:54 | P.PNAN_ITS ---
Anes - Initial Pre Proc Eval Procedure: Operation Date: 10/17/25 08:00 Proposed Procedures p Screening Colonoscopy - Dav See MD Date/Time: 10/17/25 06:54 Surgeon: Dav See MD Pre Op Diagnosis: Personal history of colon polyps, unspecified Patient Data Age: 75 Gender: F Height: 1.63 m Weight: 80.5 kg Last Vital Signs Temp 36.1 C L 10/17/25 06:51 Pulse 66 10/17/25 06:51 Resp 18 10/17/25 06:51 BP 125/70 10/17/25 06:51 Pulse Ox 97 10/17/25 06:51 O2 Del Method Room Air 10/17/25 06:51 Allergies Allergy/AdvReac Type Severity Reaction Status Date / Time No Known Allergies Allergy Mild Verified 10/17/25 06:50 Home Medications ?Medication ?Instructions ?Recorded ?Confirmed ?Type celecoxib 100 mg capsule (Celebrex) 100 mg PO BID #60 caps 01/20/25 10/03/25 Rx tizanidine 2 mg tablet 2 mg PO TID PRN muscle spast icity 01/20/25 10/03/25 Rx #21 tabs levothyroxine 175 mcg tablet 175 mcg PO QAM #90 tabs 0 05/03/25 10/17/25 Rx Patient hx anesthesia problems: none Family hx anesthesia problems: none Results Review: All pre-operative results and documents have been reviewed as part of the pre- operative evaluation. [facility] Past Medical History Medical History Swelling of knee joint, right Sprain of unspecified collateral ligament of right knee, initial encounter Maltracking of right patella Dysfunction of both eustachian tubes Cutaneous skin tags CKD (chronic kidney disease), stage II Arm pain, left Acute non-recurrent frontal sinusitis Adenomatous colon polyp Vitamin D deficiency, unspecified Acquired hypothyroidism Surgical History Surgical History History of tubal ligation Family History Family History Mother Carcinoma of colon Father Family history of pancreatic cancer Other Family history of malignant neoplasm Family history of malignant neoplasm of brain Social History Social History Social History: Smoking packs per day: 1 Smoking cigarettes per day: 20.0 Years smoked: 10 Smoking pack-years: 10.00 Smoking status: Never smoker Tobacco type: cigarettes Second hand tobacco smoke exposure: No Smoking end date: 12/01/95 Alcohol intake: current Drinks per week: 6 Alcohol use details: OCCASIONALLY ON THE WEEKEND Substance use: never Substance use type: does not use Do You Feel Safe in your Home?: Yes Lack of Transportation: No Lack of Food: Never True Current Housing: I Have Housing Concerned About Future Housing: No Difficulty Paying Gas/Electric Bills: No Difficulty Paying for Meds: No Currently Unemployed: YES Education: Don't Know Difficulty w/ Childcare or Family Care: No Living arrangements: with family Occupation/Education: retired Gender identity (if verbalized by the patient): Female Sexual Orientation (if Verbalized by the Patient): Straight or Heterosexual Spiritual care concerns: No Agree to blood products: Yes Anes - Eval Final PreProcedure Day of Procedure 10/17/25 06:54 Patient weight: obese Heart: regular rate and rhythm Lungs: clear to auscultation Airway: Mallampati scale class II Neurological: alert and oriented Last oral intake: >/= 8 hours ASA classification: II Emergent: no Anesthetic plan: proceed Anesthesia type and monitoring: general GIVS and standard monitoring Results Review: All pre-operative results and documents have been reviewed as part of the pre- operative evaluation. Informed Consent: The patient's anesthetic plan and its attendant risks and benefits were discussed with the patient/family/POA. Questions were solicited and answers provided to the satisfaction of the patient/family/POA.
[2025-10-17] MEDS: LACTATED RINGERS 1,000 ML 150 ML IV CONT (07:03)
--- NOTE | 2025-10-17 07:51 | P.HP_ITS ---
History of Present Illness History of Present Illness Consent: Risks, benefits, and alternatives have been discussed and questions answered. Patient agrees to proceed with procedure. Chief complaint: Personal history of colon polyps, unspecified Narrative: Reva Mayer is a 75 year old female with colon polyp in 2021 Review of Systems Review of Systems: All systems reviewed & are unremarkable except as noted in HPI and below PMFSH Past Medical History Medical History Swelling of knee joint, right Sprain of unspecified collateral ligament of right knee, initial encounter Maltracking of right patella Dysfunction of both eustachian tubes Cutaneous skin tags CKD (chronic kidney disease), stage II Arm pain, left Acute non-recurrent frontal sinusitis Adenomatous colon polyp Vitamin D deficiency, unspecified Acquired hypothyroidism Surgical History Surgical History History of tubal ligation Family History Family History Mother Carcinoma of colon Father Family history of pancreatic cancer Other Family history of malignant neoplasm Family history of malignant neoplasm of brain Social History Social History Social History: Smoking packs per day: 1 Smoking cigarettes per day: 20.0 Years smoked: 10 Smoking pack-years: 10.00 Smoking status: Never smoker Tobacco type: cigarettes Second hand tobacco smoke exposure: No Smoking end date: 12/01/95 Alcohol intake: current Drinks per week: 6 Alcohol use details: OCCASIONALLY ON THE WEEKEND Substance use: never Substance use type: does not use Do You Feel Safe in your Home?: Yes Lack of Transportation: No Lack of Food: Never True Current Housing: I Have Housing Concerned About Future Housing: No Difficulty Paying Gas/Electric Bills: No Difficulty Paying for Meds: No Currently Unemployed: YES Education: Don't Know Difficulty w/ Childcare or Family Care: No Living arrangements: with family Occupation/Education: retired Gender identity (if verbalized by the patient): Female Sexual Orientation (if Verbalized by the Patient): Straight or Heterosexual Spiritual care concerns: No Agree to blood products: Yes Meds Home Medications and Allergies Home Medications ?Medication ?Instructions ?Recorded ?Confirmed ?Type celecoxib 100 mg capsule (Celebrex) 100 mg PO BID #60 caps 01/20/25 10/03/25 Rx tizanidine 2 mg tablet 2 mg PO TID PRN muscle spast icity 01/20/25 10/03/25 Rx #21 tabs levothyroxine 175 mcg tablet 175 mcg PO QAM #90 tabs 0 05/03/25 10/17/25 Rx Allergies Allergy/AdvReac Type Severity Reaction Status Date / Time No Known Allergies Allergy Mild Verified 10/17/25 06:50 Vital Signs Vital Signs - 24 hr 10/17/25 06:51 Temperature 97 F L Pulse Rate 66 Respiratory Rate 18 Blood Pressure 125/70 Pulse Oximetry 97 Oxygen Delivery Room Air Exam Const: General: comfortable and no acute distress HENMT: Face/Nose/Sinus: Normal nares present Eyes: General: appearance normal, both eyes and all related structures Resp: Auscultation: clear to auscultation bilaterally Cardio: Rate: regular rate Rhythm: regular rhythm GI: Inspection: non-distended GI Palp: Yes Soft to palpation Skin: General skin exam: normal color Extrem: General: normal to inspection Psych: Mental Status: mental status grossly normal Assessment and Plan Assessment and plan (1) Adenomatous colon polyp: Code(s): D12.6 - Benign neoplasm of colon, unspecified Status: Acute Assessment and Plan: colonoscopy
--- NOTE | 2025-10-17 08:12 | S_PTH ---
PATIENT: Reva Mayer LOC: [place] [facility]#:[id number] AGE/SX: 75/F ROOM: RE10/17/[address]: Dav See MD : 1950 BED: DIS: 10/17/2025 SPEC #: [id number] RECD: 10/17/25 09:10 STATUS: MICHELLE RELevar #: [id number] KARYN: 10/17/25 08:[address]: Dav See DEPT: [facility] Surgical RECD BY: Natalie Gandara ENTERED: 10/17/25 09:11 SP TYPE: Surgical OTHR DR: Ismael Zavala MD Tissues: A - Colon Polypectomy B - Colon Polypectomy Procedures: Hematoxylin and Eosin Stain Gross and Microscopic Level 4
[2025-10-17 08:13] VITALS: BP 125/56; PULSE 82; RESP 18; O2SAT 97
[2025-10-17 08:23] VITALS: BP 101/46; PULSE 69; RESP 18; O2SAT 97
[2025-10-17 08:33] VITALS: BP 107/62; PULSE 61; RESP 18; O2SAT 97
== END 2025-10-17 08:44 | disposition home or self-care (01) ==
PROVIDERS: PCP Family Medicine; Referring Provider Internal Medicine Gastroenterology; Visit Provider Internal Medicine Gastroenterology
PROC: 0DJD8ZZ Inspection of Lower Intestinal Tract, Via Natural or Artificial Opening Endoscopic (ICD-10-PCS; CPT 45378; principal; 2025-10-17 08:00)
DX: Z12.11 Encounter for screening for malignant neoplasm of colon (principal); D12.0 Benign neoplasm of cecum; K63.5 Polyp of colon; K64.8 Other hemorrhoids; Z87.891 Personal history of nicotine dependence; E66.9 Obesity, unspecified; Z68.30 Body mass index [BMI] 30.0-30.9, adult
CPT/HCPCS: 45385; 88305; J2704; J7120